=== PATIENT | female | born 1975 | race Caucasian/White ===

== ENCOUNTER 2017-03-21 14:20 | Emergency (ER) | payer MEDICAID ==
[~2017-03-21] VITALS: Ht 157.5 cm; Wt 60.0 kg
[~2017-03-21 14:20] MED LIST: BACT800T5 PO; BELL1TAB PO; MUPI2%T TOPICAL
[2017-03-21 14:22] VITALS: BP 178/77; PULSE 99; RESP 12; TEMP 98.1; O2SAT 99
[2017-03-21 15:26] VITALS: BP 121/78; PULSE 83; RESP 18; TEMP 84; O2SAT 97
[2017-03-21] MEDS ORDERED: KETOROLAC TROMETHAMINE 60 MG/2 ML (IM) VIAL IM ONE (16:00)
[2017-03-21] MEDS ORDERED: DIAZEPAM 5 MG TAB PO ONE (16:00)
--- NOTE | 2017-03-21 16:08 | PD ---
HPI Chief Complaint: Back/ Neck Pain or Injury Time Seen by Provider: 15:48 Travel History International Travel<30 days: No Contact w/Intl Traveler<30days: No Traveled to known affect area: No History of Present Illness HPI 41yo F with chronic back pain and disc herniation presents to the ED with c/o right lower back pain since yesterday. Pain is worst with movement and shoots down right buttocks and posterior right leg. Denies any fever, new trauma, chest pain, sob, n/v, abdominal pain, new focal weakness or numbness. Denies IVDA. Took ibuprofen with no relieve. No urinary symptoms or incontinence. PFSH Past Medical History Diminished Hearing: No Immunizations Current: Yes ?: Not LMP: 03/06/17 Tubal Ligation: Yes Past Surgical History Abdominal Surgery: Yes (tubal litigation) Social History Alcohol Use: Yes (on occasion) Tobacco Use: Yes (1 ppd) Substance Use: No Allergies-Medications (Allergen,Severity, Reaction): Coded Allergies: codeine (Unverified Allergy, Severe, Swelling, 03/17/17) penicillin G (Unverified Allergy, Severe, Anaphylaxis, 03/17/17) Reported Meds & Prescriptions Reported Meds & Active Scripts Active (Avenfsybt-Qajnukgzckf-Fisdicql) 16.2 mg Tab 1 Tab PO TID Bactroban Topical (Mupirocin) 22 Gm Cream 1 Applic TOPICAL BID 10 Days Bactrim DS (Sulfamethoxazole-Trimethoprim) 800-160 Mg Tab 1 Tab PO BID Review of Systems Except as stated in HPI: all other systems reviewed are Neg Physical Exam Narrative GENERAL: 41yo F in mild distress. SKIN: Focused skin assessment warm/dry. HEAD: Atraumatic. Normocephalic. EYES: Pupils equal and round. No scleral icterus. No injection or drainage. CARDIOVASCULAR: Regular rate and rhythm. No murmur appreciated. RESPIRATORY: No accessory muscle use. Clear to auscultation. Breath sounds equal bilaterally. GASTROINTESTINAL: Abdomen soft, non-tender, nondistended. BACK: Mild TTP L5. +Right paraspinal ttp L4-5. No mass or erythema. MUSCULOSKELETAL: RLE: No erythema or edema. +TTP right gluteus valentina. Positive straight leg test on right. Sensation intact. Distal pulses intact. NEUROLOGICAL: Awake and alert. No obvious cranial nerve deficits. Motor grossly within normal limits. Normal speech. No saddle paresthesia. Sensation equal and intact in bilateral lower extremities. PSYCHIATRIC: Appropriate mood and affect; insight and judgment normal. Data Data Last Documented VS Vital Signs Date Time Temp Pulse Resp B/P (MAP) Pulse Ox O2 Delivery O2 Flow Rate FiO2 03/21/17 15:26 83 18 121/78 (92) 97 Room Air Orders Orders Diazepam (Valium) (03/21/17 16:00) Ketorolac Inj (Toradol Inj) (03/21/17 16:00) [facility] Medical Decision Making Medical Screen Exam Complete: Yes Emergency Medical Condition: Yes Differential Diagnosis Sciatica vs. acute on chronic back pain vs. musculoskeletal pain Narrative Course 41yo F with right sided back pain that radiates to right posterior buttock and down the posterior part of her right leg. Pt is afebrile with no systemic symptoms. No signs of infection in back or hip. FROM in right hip. Pain is worst with movement. No red flag. No IVDA. VS stable. Pt given valium and toradol with some improvement of pain. Pt instructed to follow up with primary care physician. Return precautions given. Diagnosis Primary Impression: Back pain Qualified Codes: M54.41 - Lumbago with sciatica, right side Patient Instructions: General Instructions Departure Forms: Tests/Procedures Additional Instructions: Please follow up with your primary care physician or possibly neurosurgeon for your history of herniated disc. Return to the ED if you have fever, nausea, vomiting, focal weakness or numbness or worsening pain. Med/Other Pt SpecificInfo: Prescription(s) given Scripts Acetaminophen (Tylenol) 325 Mg Tab 650 MG PO Q6H Y for PAIN SCALE 1 TO 4, #20 TAB 0 Refills Prov: Cheryl Jones DO 03/21/17 Cheryl Jones DO Mar 21, 2017 16:08
[2017-03-21] MEDS ORDERED: TYLE325T PO (17:08)
== END 2017-03-21 17:29 | disposition home or self-care (01) ==
LOC: NEPD 14:20
DX: M54.41 Lumbago with sciatica, right side (principal); F17.200 Nicotine dependence, unspecified, uncomplicated
CPT/HCPCS: 96372; 99284; J1885